=== PATIENT | male | born 2000 | race Caucasian/White ===

== ENCOUNTER 2023-11-23 11:12 | Inpatient (IN) ==
--- NOTE | 2023-11-23 11:41 | Emergency Department Note ---
History of Present Illness General Chief complaint: Illness Stated complaint: SWOLLEN TONSIL, COUGHING, FEVER Time Seen by Provider: 11/23/23 11:23 Source: patient, family (Mother who arrived at the bedside), RN notes reviewed and old records reviewed (11/23/23-Quick care note from today for similar complaints) Mode of arrival: ambulatory Limitations: no limitations History of Present Illness This patient is a 23-year-old male who comes in after having a sore throat for the last 3 days it got worse overnight he feels like his tonsils are swollen bilaterally more so on the left he said today the left side his face hurts in his left neck. He had a fever. No sick contacts no trauma .he is having a difficult time swallowing he says he feels minimally short of breath. No rash. He has used [id number] Tylenol and ibuprofen but no other medications. He is on no NABIL inhibitor's or blood pressure medication. No swelling of the mouth or tongue anteriorly but just the tonsils. No significant cough Home Medications Medication Instructions Recorded Confirmed Type No Known Home Medications 11/23/23 11/23/23 History Allergies Allergy/AdvReac Type Severity Reaction Status Date / Time cat dander Allergy Mild Unverified 11/23/23 10:38 Past Med/Surg History Problem List (Updated 11/23/23 @ 14:50 by Mario Gupta MD) Lab test negative for COVID-19 virus (Acute) Acute dehydration (Acute) Sepsis Acute tonsillitis (Acute) Peritonsillar abscess (Acute) Medical History (Updated 11/23/23 @ 14:50 by Maroi Gupta MD) No pertinent past medical history Surgical History No pertinent past surgical history Social History Smoking Status: Never smoker Preferred Language: Occitan Feels Safe at Home: Yes Immunizations: Past med historydenies significant past medical history. Denies diabetes. Review of Systems A total of 10 systems reviewed and were otherwise negative Physical Exam Vital Signs Vital Signs - 24 hr 11/23/23 11:13 11/23/23 11:21 11/23/23 11:26 Temperature 36.9 C 38.8 C H Temperature Source Temporal Artery Scan Oral Pulse Rate 121 H 102 H Pulse Rate [Apical] 107 H Pulse Rhythm [Apical] Regular Respiratory Rate 20 20 Respiratory Effort / Characteristics Non-Labored Spontaneous Non-Labored Spontaneous Respiratory Depth Normal Normal Respiratory Pattern Regular Blood Pressure 120/78 Blood Pressure [Right Arm] 117/76 Blood Pressure Mean 92 Blood Pressure Mean [Right Arm] 89 Blood Pressure Position [Right Arm] Semi-fowlers Pulse Oximetry 95 96 Oxygen Delivery Method Room Air Room Air Sepsis Recent Fever Within 48 Hours No Sepsis New/Unexplained Change in Mental Status N/A Sepsis Action Taken by Nursing No Action Required 11/23/23 12:36 11/23/23 12:36 11/23/23 14:00 Temperature 38.0 C H Temperature Source Oral Pulse Rate 88 Pulse Rate [Apical] 90 93 H Pulse Rhythm [Apical] Regular Respiratory Rate 16 19 18 Respiratory Effort / Characteristics Non-Labored Spontaneous Non-Labored Spontaneous Respiratory Depth Normal Normal Respiratory Pattern Regular Regular Blood Pressure Blood Pressure [Right Arm] 119/77 112/74 Blood Pressure Mean Blood Pressure Mean [Right Arm] 91 86 Blood Pressure Position [Right Arm] Semi-fowlers Semi-fowlers Pulse Oximetry 98 98 95 Oxygen Delivery Method Room Air Room Air Room Air Sepsis Recent Fever Within 48 Hours Sepsis New/Unexplained Change in Mental Status Sepsis Action Taken by Nursing General: Well developed well nourished young male who has a muffled voice but in no acute distress, breathing comfortably on room air. HEENT: Normal cephalic atraumatic. Pupils are equal round and reactive to light. Extraocular movements are intact. Oropharynx is pink with moist mucous membranes. No swelling of the mouth lips or tongue anteriorly. His tonsils are enlarged bilaterally and kissing in the middle. The left may be more enlarged on the right Neck: Supple with a midline trachea. No meningeal signs or stiffness, no JVD or bruits. No Stridor. He does have some lymphadenopathy in the anterior neck mostly on the left. No fluctuance. Chest: Clear to auscultation bilaterally. No wheezes or rhonchi. No increased work of breathing. Heart: Regular rate and rhythm without murmurs or gallops. Abdomen: Soft nontender, nondistended without rebound guarding or rigidity. Extremities: No cyanosis clubbing or edema. No calf tenderness or assymetry Spine/Back. Non tender to palpation. No CVA tenderness Skin: Good turgor without rashes. Neurologic exam: Cranial nerves two through 12 are intact. Motor and sensation are intact and symmetrical throughout. Course Administered Medications Sodium Chloride (Nss) 1,000 mls @ 999 mls/hr IV .Q1H1M ONE Stop: 11/23/23 14:57 Last Admin: 11/23/23 14:16 Dose: 999 mls/hr Documented By: LEANDER Discontinued Medications Sodium Chloride (Nss) 1,000 mls @ 999 mls/hr IV .Q1H1M ONE Stop: 11/23/23 12:35 Last Infusion: 11/23/23 14:18 Dose: Infused Documented By: Admin: 11/23/23 12:38 Dose: 999 mls/hr Documented By: LEANDER Ceftriaxone Sodium (Rocephin) 2,000 mg in 50 mls @ 100 mls/hr IV NOW STA Stop: 11/23/23 14:21 Last Admin: 11/23/23 14:13 Dose: 100 mls/hr Documented By: LEANDER Ioversol (Optiray 320 100ml) 94 ml IV ONCE ONE Stop: 11/23/23 13:05 Last Admin: 11/23/23 13:05 Dose: 94 ml Documented By: BACILIO Ketorolac Tromethamine (Ketorolac Tromethamine 15 Mg/Ml Vial) 10 mg IV NOW ONE Stop: 11/23/23 11:36 Last Admin: 11/23/23 12:54 Dose: 10 mg Documented By: LEANDER Methylprednisolone (Methylprednisolone 125 Mg/2 Ml Vial) 125 mg IV NOW STA Stop: 11/23/23 11:36 Last Admin: 11/23/23 12:56 Dose: 125 mg Documented By: LEANDER Medical Decision Making Differential Diagnosis Pharyngitis, peritonsillar abscess, infection, airway compromise, epiglottitis, Luís's angina, mono, allergic reaction, dehydration Medical Records Attestation: I reviewed the patient's medical records. Home Medications Current Medication List: was personally reviewed by me Laboratory Data Attestation: I reviewed the patient's lab results. 11/23/23 12:30 11/23/23 12:30 Lab Results 11/23/23 11/23/23 Range/Units 12:30 12:45 WBC 16.83 H (4.8-10.8) K/ul RBC 4.85 (4.70-6.10) M/uL Hgb 14.9 (14.0-18.0) g/dl POC Hgb 14.3 (14.0-18.0) g/dl Hct 42.0 (42.0-52.0) % POC Hct 42 (42-52) % MCV 86.6 (80.0-100.0) fL MCH 30.7 (25.0-34.0) pg MCHC 35.5 (32.0-36.0) g/dL RDW Std Deviation 37.8 (36.4-46.3) fL RDW Coeff of Melba 11.9 (11.5-14.5) % Plt Count 328 (130-400) K/uL MPV 11.0 (9.4-12.4) fL Immature Gran % (Auto) 0.5 % Neut % (Auto) 79.0 % Lymph % (Auto) 8.0 % Pepin % (Auto) 12.2 % Eos % (Auto) 0.1 % Baso % (Auto) 0.2 % Neut # (Auto) 13.30 H (1.40-6.50) K/uL Lymph # (Auto) 1.34 (1.20-3.40) K/uL Pepin # (Auto) 2.05 H (0.11-0.59) K/uL Eos # (Auto) 0.02 (0.00-0.50) K/uL Baso # (Auto) 0.03 (0.00-0.20) K/uL Immature Gran # (Auto) 0.09 (0.01-0.20) K/uL POC Sodium 137 (135-144) mmol/L Sodium 136 (136-145) mmol/L POC Potassium 3.9 (3.3-5.0) mmol/L Potassium 4.0 (3.5-5.1) mmol/L POC Chloride 100 L (101-112) mmol/L Chloride 100 (98-107) mmol/L Carbon Dioxide 27 (21-32) mmol/L POC Total CO2 26 (24-31) mmol/L Anion Gap 9 (3-11) POC Anion Gap 16.0 (16-25) mmol/L POC BUN 9 (7-18) mg/dl BUN 10 (6-23) mg/dl Creatinine 1.08 (0.6-1.4) mg/dl POC Creatinine 1.2 (0.6-1.3) mg/dl Est Cr Clr Drug Dosing 101.2 ml/min Est GFR ( Amer) 110.0 ml/min Est GFR (Non-Af Amer) 94.9 ml/min BUN/Creatinine Ratio 9.3 L (10-20) Glucose 97 (70-99(Fasting)) mg/dl POC Glucose (other) 99 (70-99) mg/dl Calcium 9.8 (8.6-10.3) mg/dl POC Ioniz Calcium [place] 1.16 (1.12-1.32) mmol/l Total Bilirubin 0.6 (0.2-1.0) mg/dl AST 22 (13-39) U/L ALT 23 (7-52) U/L Alkaline Phosphatase 89 (34-104) U/L Total Protein 7.9 (6.0-8.3) gm/dl Albumin 4.3 (3.4-5.0) gm/dl Globulin 3.6 (2.5-4.0) gm/dl Albumin/Globulin Ratio 1.2 (0.9-2) Adenovirus (PCR) Not Detected (NotDetected) B. pertussis DNA (PCR) Not Detected (NotDetected) B.parapertussis DNA PCR Not Detected (NotDetected) C. pneumoniae DNA (PCR) Not Detected (NotDetected) Coronavirus OC43 (PCR) Not Detected (NotDetected) Coronavirus HKU1 (PCR) Not Detected (NotDetected) Coronavirus 229E (PCR) Not Detected (NotDetected) SARS-CoV-2 (PCR) Not Detected (NotDetected) Coronavirus NL63 (PCR) Not Detected (NotDetected) Monoscreen Negative (Negative) Human Metapneumovir PCR Not Detected (NotDetected) Influenza Type A (PCR) Not Detected (NotDetected) Influenza Type B (PCR) Not Detected (NotDetected) M. pneumoniae (PCR) Not Detected (NotDetected) Parainfluenza 1 (PCR) Not Detected (NotDetected) Parainfluenza 2 (PCR) Not Detected (NotDetected) Parainfluenza 3 (PCR) Not Detected (NotDetected) Parainfluenza 4 (PCR) Not Detected (NotDetected) RSV (PCR) Not Detected (NotDetected) Entero/Rhino (PCR) Not Detected (NotDetected) Imaging Data Attestation: I personally reviewed and interpreted this imaging study as follows: My Impression: CT soft tissue of the neckthere is bilateral pharyngitis but no significant airway compromise. Small abscess on the left Radiologist's Impression: Soft Tissue Neck CT 11/23/23 11:35 CT SCAN OF THE NECK WITH IV CONTRAST CLINICAL HISTORY: Sore throat COMPARISON STUDY: No priors. TECHNIQUE: Following the IV administration of at L4 cc of Optiray 320, CT scan of the soft tissues of the neck was performed from the skull base to the upper chest. Images are reviewed in the axial, sagittal, and coronal planes. IV contrast was administered without complication. A dose lowering technique was utilized adhering to the principles of ALARA. FINDINGS: Pharynx: Evaluation of the pharynx is degraded by streak artifact from dental amalgam. There is significant mucosal edema identified within the oropharynx with mucosal thickening and hyperemia. The tonsils are enlarged and edematous, left greater than right. A developing peritonsillar abscess on the left is seen on axial image #124, measuring 1.8 x 1.9 x 1.4 cm. This mildly effaces the left aspect of the airway at this level. No peritonsillar fluid collection is seen on the right. There is no evidence of mass lesion. The vocal cords are symmetric. There is infiltration of the left parapharyngeal fat, with deep soft tissue infiltration seen extending into the left lower neck below the level of the hyoid. The right-sided parapharyngeal fat is maintained. The prevertebral/retropharyngeal soft tissues are within normal limits. The epiglottis is normal. Lymphadenopathy: There are numerous enlarged bilateral cervical chain lymph nodes, left greater than right. A electronics parts sales representative left cervical chain node on image #177 measures 2.1 x 1.6 cm. Thyroid: Normal in size and attenuation. Salivary glands: The parotid and submandibular glands are within normal limits. Brain parenchyma: The visualized brain parenchyma at the skull base is normal in appearance. Vascular structures: The carotid arteries and jugular veins are patent. Skeletal structures: Imaged portions of the calvarium at the skull base are within normal limits. The cervical spine appears intact. Sinuses and mastoids: The visualized paranasal sinuses are clear. The mastoid air cells are well pneumatized. Orbits: Bony orbits are intact. Orbital contents are normal as visualized. Lung apices: Visualized apical lung parenchyma is clear. IMPRESSION: 1. There is evidence of a pharyngitis/tonsillitis as above with a 1.9 cm developing left peritonsillar abscess. 2. This mildly effaces the left aspect of the airway at this level. 3. There is infiltration of the left-sided parapharyngeal fat with inflammatory change involving the deep soft tissues of the left neck as above. 4. Numerous mildly enlarged cervical lymph nodes are likely reactive. 5. Additional findings as above. ACT 112: Negative or not required by law. Electronically signed by: True Berman M.D. 11/23/2023 1:35 PM MDM Narrative This patient comes in as described above. He was seen in room 84. They were concerned about peritonsillar abscess. His strep was negative today. He does have a temperature. IV access was established she was given 1 L IV normal saline bolus she was given Toradol 10 mg IV, Solu-Medrol 125 mg IV. Multiple blood testing was obtained I also ordered a CT of the soft tissue of the neck to evaluate for abscess or other infectious/airway processes. His white count was elevated. Pepin was negative strep was negative earlier today. He has no significant electrolyte or metabolic abnormalities. He is feeling a lot better after IV hydration and the IV medications. He was also given Rocephin 2 g IV. Bio fire was negative for everything including COVID. Do think he needs to be admitted/observed for IV hydration IV antibiotics. I have consulted the on-call ENT, Dr. Hogue, and she agrees. She feels that when he is in the hospital he should have Decadron 10 mg IV every 6 hours as well as IV antibiotics. She tells me that the admitting team can [place] text her and she can see the patient tomorrow after he has had his antibiotics overnight. [facility] and the patient will be admitted for further treatment and evaluation. Continuous cardiac monitoring: Orders placed in EMR for continuous cardiac monitoring: Upon my evaluation patient noted to be normal sinus rhythm rate of 95 Impression & Plan Peritonsillar abscess, Acute tonsillitis, Acute dehydration, Lab test negative for COVID-19 virus Discharge Plan Visit Data Chief Complaint: Illness Stated Complaint: SWOLLEN TONSIL, COUGHING, FEVER ED Provider: Mario Gupta Discharge Problem: Peritonsillar abscess, Acute tonsillitis, Acute dehydration, Lab test negative for COVID-19 virus Forms Stand Alone Forms: My [facility] Prescriptions Prescriptions: No Action No Known Home Medications Referrals Referrals: Clinton Fay MD [Primary Care Provider] - Discharge Problem: Acute tonsillitis Qualifiers: Pharyngitis/tonsillitis etiology: unspecified etiology Qualified Code(s): J 03.90 - Acute tonsillitis, unspecified
[2023-11-23] MEDS: SODIUM CHLORIDE 0.9% 1,000 ML IV ONE ×2 (12:38→14:16)
[2023-11-23] MEDS: KETOROLAC TROMETHAMINE 15 MG/ML VIAL IV ONE (12:54)
[2023-11-23 12:56] LABS: Basophils # (auto) 0.03 K/uL (0.00-0.20); Basophils % (auto) 0.2 %; Eosinophils # (auto) 0.02 K/uL (0.00-0.50); Eosinophils % (auto) 0.1 %; Hemoglobin 14.9 g/dl (14.0-18.0); Immature Granulocytes # (auto) 0.09 K/uL (0.01-0.20); Immature Granulocytes % (auto) 0.5 %; Lymphocytes # (auto) 1.34 K/uL (1.20-3.40); Mean Corpuscular Hemoglobin 30.7 pg (25.0-34.0); Mean Corpuscular Hgb Conc 35.5 g/dL (32.0-36.0); Mean Corpuscular Volume 86.6 fL (80.0-100.0); Monocytes # (auto) 2.05 K/uL (0.11-0.59); Monocytes % (auto) 12.2 %; Platelet Count 328 K/uL (130-400); RDW Coefficient of Variation 11.9 % (11.5-14.5); RDW Standard Deviation 37.8 fL (36.4-46.3); Red Blood Count 4.85 M/uL (4.70-6.10); White Blood Count 16.83 K/ul (4.8-10.8)
[2023-11-23] MEDS: methylPREDNISolone 125 MG/2 ML VIAL IV STA (12:56)
[2023-11-23 13:01] LABS: iSTAT Creatinine 1.2 mg/dl (0.6-1.3); iSTAT Hemoglobin 14.3 g/dl (14.0-18.0); iSTAT Ionized Calcium 1.16 mmol/l (1.12-1.32); iSTAT Potassium 3.9 mmol/L (3.3-5.0)
[2023-11-23] MEDS: OPTIRAY 320 100ml IV ONE (13:05)
[2023-11-23 13:20] LABS: Albumin Globulin Ratio 1.2 (0.9-2); Albumin Level 4.3 gm/dl (3.4-5.0); BUN Creatinine Ratio 9.3 (10-20); Bilirubin,Total 0.6 mg/dl (0.2-1.0); Calcium 9.8 mg/dl (8.6-10.3); Creatinine Clr Calc Pharmacy 101.2 ml/min; Est GFR (Non-African American) 94.9 ml/min; Globulin 3.6 gm/dl (2.5-4.0); Total Protein 7.9 gm/dl (6.0-8.3)
--- NOTE | 2023-11-23 13:37 | CT Scan Report ---
CT SCAN OF THE NECK WITH IV CONTRAST CLINICAL HISTORY: Sore throat COMPARISON STUDY: No priors. TECHNIQUE: Following the IV administration of at L4 cc of Optiray 320, CT scan of the soft tissues of the neck was performed from the skull base to the upper chest. Images are reviewed in the axial, sag ittal, and coronal planes. IV contrast was administered without complication. A dose lowering techn ique was utilized adhering to the principles of ALARA. FINDINGS: Pharynx: Evaluation of the pharynx is degraded by streak artifact from dental amalgam. There is signi ficant mucosal edema identified within the oropharynx with mucosal thickening and hyperemia. The tons ils are enlarged and edematous, left greater than right. A developing peritonsillar abscess on the le ft is seen on axial image #124, measuring 1.8 x 1.9 x 1.4 cm. This mildly effaces the left aspect of the airway at this level. No peritonsillar fluid collection is seen on the right. There is no eviden ce of mass lesion. The vocal cords are symmetric. There is infiltration of the left parapharyngeal fa t, with deep soft tissue infiltration seen extending into the left lower neck below the level of the hyoid. The right-sided parapharyngeal fat is maintained. The prevertebral/retropharyngeal soft tissue s are within normal limits. The epiglottis is normal. Lymphadenopathy: There are numerous enlarged bilateral cervical chain lymph nodes, left greater than right. A wholesale representative left cervical chain node on image #177 measures 2.1 x 1.6 cm. Thyroid: Normal in size and attenuation. Salivary glands: The parotid and submandibular glands are within normal limits. Brain parenchyma: The visualized brain parenchyma at the skull base is normal in appearance. Vascular structures: The carotid arteries and jugular veins are patent. Skeletal structures: Imaged portions of the calvarium at the skull base are within normal limits. The cervical spine appears intact. Sinuses and mastoids: The visualized paranasal sinuses are clear. The mastoid air cells are well pneu matized. Orbits: Bony orbits are intact. Orbital contents are normal as visualized. Lung apices: Visualized apical lung parenchyma is clear. IMPRESSION: 1. There is evidence of a pharyngitis/tonsillitis as above with a 1.9 cm developing left peritonsilla r abscess. 2. This mildly effaces the left aspect of the airway at this level. 3. There is infiltration of the left-sided parapharyngeal fat with inflammatory change involving the deep soft tissues of the left neck as above. 4. Numerous mildly enlarged cervical lymph nodes are likely reactive. 5. Additional findings as above. ACT 112: Negative or not required by law. Electronically signed by: True Berman M.D. 11/23/2023 1:35 PM
[2023-11-23 13:53] LABS: Adenovirus PCR Not Detected (NotDetected); Bordetella parapertussis PCR Not Detected (NotDetected); Bordetella pertussis PCR Not Detected (NotDetected); Chlamydia pneumoniae PCR Not Detected (NotDetected); Coronavirus 229E PCR Not Detected (NotDetected); Coronavirus CoV-2 (COVID19)PCR Not Detected (NotDetected); Coronavirus HKU1 PCR Not Detected (NotDetected); Coronavirus NL63 PCR Not Detected (NotDetected); Coronavirus OC43PCR Not Detected (NotDetected); Human Metapneumovirus PCR Not Detected (NotDetected); Influenza A PCR Not Detected (NotDetected); Influenza B PCR Not Detected (NotDetected); Mycoplasma pneumoniae PCR Not Detected (NotDetected); Parainfluenza Virus 1 PCR Not Detected (NotDetected); Parainfluenza Virus 2 PCR Not Detected (NotDetected); Parainfluenza Virus 3 PCR Not Detected (NotDetected); Parainfluenza Virus 4 PCR Not Detected (NotDetected); Respiratory Syncytial VirusPCR Not Detected (NotDetected); Rhinovirus/Enterovirus PCR Not Detected (NotDetected)
--- NOTE | 2023-11-23 14:06 | History & Physical Report ---
Date of Service November 23, 2023 Assessment & Plan (1) Acute tonsillitis: (2) Peritonsillar abscess: (3) Sepsis: Plan Moe Perkins is a 23y/o M with no significant PMHx who presented to the ED for evaluation of a worsening sore throat and was found to have a 1.9cm left perit onsillar abscess with associated tonsillitis on soft tissue neck CT. Acute Tonsillitis Left Peritonsillar Abscess & Sepsis - Meets sepsis criteria on presentation 2/2 tachycardia, fever, WBC>12K and present source of infection. Temp 38.0oC, WBC 16.8K on admission. RVP & monoscreen both negative. No acute electrolyte abnormalities. Soft tissue neck CT showed evidence of a pharyngitis/tonsillitis with a 1.9 cm developing left peritonsillar abscess. Neck CT also revealed infiltration of the left-sided parapharyngeal fat with inflammatory change involving the deep soft tissues of the left neck & numerous mildly enlarged cervical lymph nodes (likely reactive). Dr. Gupta spoke with ENT surgeon on-call, Dr. Fiorella Hogue, who recommends the following: IV Decadron 10mg Q6H, broad-spectrum ABX coverage and to continue IVF. Dr. Hogue will likely see patient tomorrow [routine consult placed]. Soft + easy to chew diet for now, can advance ANGELES. Will keep him NPO at midnight pending ENT evaluation for possible I&D. Administered 2L NSS in ED, will continue IVF 2/2 presenting sepsis. Was started on IV Rocephin in ED, will transition to IV Zosyn for now. Blood culture pending - follow. Pain control regimen in place. Ordered a dose of PO Tylenol to be given in ED 2/2 fever, will continue w/ scheduled IV Tylenol. Patient received 125mg IV Solu-Medrol in ED, will continue w/ IV Decadron 10mg Q6H for now per ENT surgery's recommendation. DVT Prophylaxis: SCDs for now pending potential surgical intervention tomorrow. Code Status: FULL CODE PCP: Mario Fay MD Disposition: Observation in Med/Surg + Telemetry Patient seen in collaboration with Dr. Russell. Please see addendum. I spent a total of 55 minutes coordinating, documenting, and providing care for this patient excluding time spent in the performance of separately billed services. This included personally reviewing all current laboratories and imaging studies, medical reconciliation, outpatient chart review and discussion with specialists. This chart was completed in part utilizing Speech Voice Recognition Software. Grammatical errors, random word insertions, pronoun errors, and incomplete sentences are an occasional consequence of this system due to software limitations, ambient noise, and hardware issues. Any formal questions or concerns about the content, text, or information contained within the body of this dictation should be directly addressed to the provider for clarification. History of Present Illness Chief Complaint: Sore Throat Primary Care Provider: Mario Fay MD Moe Perkins is a 23y/o M with no significant PMHx who presented to the ED for evaluation of a worsening sore throat. History obtained from patient, family at bedside and associated chart review. Patient reports an ongoing sore throat and intermittent fevers since last Thursday. His girlfriend mentions that his highest recorded fever at home was 102oF. He does report a mild cough and minimal sinus congestion. He endorses body aches and chills as well. He also mentions that his tonsils have felt swollen and sore since Thursday. He reports that the left side of his face and neck have been hurting. He has been taking Tylenol and Motrin at home without much relief of his pain. He is having some difficulty swallowing, but denies any shortness of breath or chest pain. No known sick contacts or trauma. Allergies Allergy/AdvReac Type Severity Reaction Status Date / Time cat dander Allergy Mild Unverified 11/23/23 10:38 Home Medications Medication Instructions Recorded Confirmed Type No Known Home Medications 11/23/23 11/23/23 History Past Med/Surg History Problem List Lab test negative for COVID-19 virus (Acute) Acute dehydration (Acute) Sepsis Acute tonsillitis (Acute) Peritonsillar abscess (Acute) Medical History No pertinent past medical history Surgical History No pertinent past surgical history Social History Smoking Status: Never smoker Second Hand Exposure: No; Do You Dip or Chew Tobacco: No; Hx Alcohol Use: No Hx Substance Use: No Preferred Language: [place]orese Communication Ability: Effective 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 Physical Exam Physical Exam: General: WD/WN, vitals as above, NAD, sitting up in bed, somewhat muffled voice. A+Ox3, ill-appearing but very pleasant. HEENT: Normocephalic, atraumatic. PERRL, conjunctivae normal, oropharynx moist, tonsils enlarged bilaterally, no drooling or lip swelling. Neck: Normal visual inspection, trachea midline, no thyromegaly, bilateral cervical lymphadenopathy (L>R). Respiratory: Normal respiratory effort, lungs clear to auscultation, no wheeze, rales, rhonchi. No accessory muscle use. Cardiovascular: Regular rate, rhythm, no murmur, normal peripheral pulses, no BLE edema. Vessels: No JVD. Abdomen/GI: Normal bowel sounds, soft, nontender, no hepatosplenomegaly. Extremities/Musculoskeletal: No cyanosis or clubbing, extremities motor strength intact, moves all extremities. Neurologic: EOMI, accommodation nl, no face palsy, no dysarthria, CN's II-XI not formally tested but appear grossly intact bilaterally. Skin: No rashes, normal color, mildly diaphoretic, somewhat clammy to touch, normal turgor. Results & Data Results & Data Vital Signs (Past 12 Hours) Vital Signs Temp Pulse Pulse Resp BP BP Pulse Ox 11/23/23 12:36 90 19 119/77 98 11/23/23 12:36 88 16 98 11/23/23 11:26 38.8 C H 107 H 20 117/76 96 11/23/23 11:21 102 H 11/23/23 11:13 36.9 C 121 H 20 120/78 95 O2 Del Method 11/23/23 12:36 Room Air 11/23/23 12:36 Room Air 11/23/23 11:26 Room Air 11/23/23 11:21 11/23/23 11:13 Room Air Laboratory Results Short CBC 11/23/23 Range/Units 12:30 WBC 16.83 H (4.8-10.8) K/ul Hgb 14.9 (14.0-18.0) g/dl Hct 42.0 (42.0-52.0) % Plt Count 328 (130-400) K/uL BMP 11/23/23 12:30 Sodium 136 Potassium 4.0 Chloride 100 Carbon Dioxide 27 BUN 10 Creatinine 1.08 Glucose 97 Calcium 9.8 Liver Function 11/23/23 Range/Units 12:30 Total Bilirubin 0.6 (0.2-1.0) mg/dl AST 22 (13-39) U/L ALT 23 (7-52) U/L Alkaline Phosphatase 89 (34-104) U/L Albumin 4.3 (3.4-5.0) gm/dl Diagnostic Findings Soft Tissue Neck CT 11/23/23 11:35 CT SCAN OF THE NECK WITH IV CONTRAST CLINICAL HISTORY: Sore throat COMPARISON STUDY: No priors. TECHNIQUE: Following the IV administration of at L4 cc of Optiray 320, CT scan of the soft tissues of the neck was performed from the skull base to the upper chest. Images are reviewed in the axial, sagittal, and coronal planes. IV contrast was administered without complication. A dose lowering technique was utilized adhering to the principles of ALARA. FINDINGS: Pharynx: Evaluation of the pharynx is degraded by streak artifact from dental amalgam. There is significant mucosal edema identified within the oropharynx with mucosal thickening and hyperemia. The tonsils are enlarged and edematous, left greater than right. A developing peritonsillar abscess on the left is seen on axial image #124, measuring 1.8 x 1.9 x 1.4 cm. This mildly effaces the left aspect of the airway at this level. No peritonsillar fluid collection is seen on the right. There is no evidence of mass lesion. The vocal cords are symmetric. There is infiltration of the left parapharyngeal fat, with deep soft tissue infiltration seen extending into the left lower neck below the level of the hyoid. The right-sided parapharyngeal fat is maintained. The prevertebral/retropharyngeal soft tissues are within normal limits. The epiglottis is normal. Lymphadenopathy: There are numerous enlarged bilateral cervical chain lymph nodes, left greater than right. A public relations representative left cervical chain node on image #177 measures 2.1 x 1.6 cm. Thyroid: Normal in size and attenuation. Salivary glands: The parotid and submandibular glands are within normal limits. Brain parenchyma: The visualized brain parenchyma at the skull base is normal in appearance. Vascular structures: The carotid arteries and jugular veins are patent. Skeletal structures: Imaged portions of the calvarium at the skull base are within normal limits. The cervical spine appears intact. Sinuses and mastoids: The visualized paranasal sinuses are clear. The mastoid air cells are well pneumatized. Orbits: Bony orbits are intact. Orbital contents are normal as visualized. Lung apices: Visualized apical lung parenchyma is clear. IMPRESSION: 1. There is evidence of a pharyngitis/tonsillitis as above with a 1.9 cm developing left peritonsillar abscess. 2. This mildly effaces the left aspect of the airway at this level. 3. There is infiltration of the left-sided parapharyngeal fat with inflammatory change involving the deep soft tissues of the left neck as above. 4. Numerous mildly enlarged cervical lymph nodes are likely reactive. 5. Additional findings as above. ACT 112: Negative or not required by law. Electronically signed by: True Berman M.D. 11/23/2023 1:35 PM Medications Administered Discontinued Medications Sodium Chloride (Nss) 1,000 mls @ 999 mls/hr IV .Q1H1M ONE Stop: 11/23/23 12:35 Last Admin: 11/23/23 12:38 Dose: 999 mls/hr Documented By: LEANDER Ioversol (Optiray 320 100ml) 94 ml IV ONCE ONE Stop: 11/23/23 13:05 Last Admin: 11/23/23 13:05 Dose: 94 ml Documented By: BACILIO Ketorolac Tromethamine (Ketorolac Tromethamine 15 Mg/Ml Vial) 10 mg IV NOW ONE Stop: 11/23/23 11:36 Last Admin: 11/23/23 12:54 Dose: 10 mg Documented By: LEANDER Methylprednisolone (Methylprednisolone 125 Mg/2 Ml Vial) 125 mg IV NOW STA Stop: 11/23/23 11:36 Last Admin: 11/23/23 12:56 Dose: 125 mg Documented By: LEANDER Code Status & VTE Plan Code Status FULL CODE Supervising Physician Co-Signing Physician Notes Pt was seen and examined by myself, Leonor Russell MD on the day of service. Care was coordinated with Brissa Cook PA-C. 23yoM septic with peritonsillar abscess. On exam, appears toxic, denies SOB or trouble breathing. No visible drooling, voice with reported improvement. IV zosyn + empiric Linezolid given sepsis and toxic appearance on exam, MRSA nares pending. IV fluids, steroids. ENT consult, NPO after midnight. Otherwise as above. I spent a total [id number] coordinating, documenting, and providing care for this patient excluding time spent in the performance of separately billed services (1) Acute tonsillitis Pharyngitis/tonsillitis etiology: unspecified etiology Qualified Code(s): J03.90 - Acute tonsillitis, unspecified (3) Sepsis Sepsis acute organ dysfunction status: without acute organ dysfunction Sepsis type: sepsis due to unspecified organism Qualified Code(s): A41.9 - Sepsis, unspecified organism
[2023-11-23] MEDS: cefTRIAXone SODIUM 2,000 MG/50 ML BAG IV STA (14:13)
[2023-11-23] MEDS: ACETAMINOPHEN 325 MG TAB PO STA (16:12)
[2023-11-23] MEDS ORDERED: ONDANSETRON INJ 2 MG/ML 2 ML VIAL IV PRN (16:53)
[2023-11-23] MEDS ORDERED: KETOROLAC TROMETHAMINE 15 MG/ML VIAL IV PRN (16:53)
[2023-11-23] MEDS ORDERED: POLYETHYLENE (MIRALAX) 17 GM PACK PO PRN (16:53)
[2023-11-23] MEDS: SODIUM CHLORIDE 0.9% 1,000 ML IV SCH (17:15)
[2023-11-23] MEDS: ACETAMINOPHEN 1,000 MG/100 ML VIAL IV SCH (17:15)
[2023-11-23] MEDS: PIPERACILLIN/TAZOBACTAM 4.5 GM/100 ML BAG IV STA (17:34)
[2023-11-23] MEDS: dexAMETHasone 10 MG in SYRINGE 0 ML IV SCH (18:56)
[2023-11-23] MEDS: PIPERACILLIN/TAZOBACTAM 4.5 GM/100 ML BAG IV SCH (22:00)
[2023-11-23] MEDS ORDERED: HYDROmorphone INJ 0.5 MG/0.5 ML SYR IV PRN (22:48)
[2023-11-23] MEDS: LINEZOLID 600 MG/300 ML BAG IV SCH (23:52)
[2023-11-24 08:28] LABS: Hematocrit (blood only) 40.5 % (42.0-52.0); Hemoglobin 13.9 g/dl (14.0-18.0); Mean Corpuscular Hemoglobin 30.3 pg (25.0-34.0); Mean Corpuscular Hgb Conc 34.3 g/dL (32.0-36.0); Mean Corpuscular Volume 88.4 fL (80.0-100.0); Mean Platelet Volume 10.9 fL (9.4-12.4); Platelet Count 328 K/uL (130-400); RDW Coefficient of Variation 12.1 % (11.5-14.5); Red Blood Count 4.58 M/uL (4.70-6.10); White Blood Count 21.34 K/ul (4.8-10.8)
[2023-11-24 08:36] LABS: BUN Creatinine Ratio 12.2 (10-20); Calcium 8.7 mg/dl (8.6-10.3); Creatinine Clr Calc Pharmacy 121.4 ml/min; Est GFR (African American) 137.1 ml/min; Est GFR (Non-African American) 118.3 ml/min; Magnesium 2.1 mg/dl (1.7-2.4); Phosphorus 3.1 mg/dl (2.5-4.9); Potassium 3.7 mmol/L (3.5-5.1)
[2023-11-24 08:59] LABS: Basophils # (auto) 0.05 K/uL (0.00-0.20); Basophils % (auto) 0.2 %; Eosinophils # (auto) 0.01 K/uL (0.00-0.50); Immature Granulocytes # (auto) 0.11 K/uL (0.01-0.20); Immature Granulocytes % (auto) 0.5 %; Lymphocytes # (auto) 1.15 K/uL (1.20-3.40); Lymphocytes % (auto) 5.4 %; Monocytes % (auto) 3.3 %; Neutrophils # (auto) 19.32 K/uL (1.40-6.50); Neutrophils % (auto) 90.6 %
--- NOTE | 2023-11-24 12:11 | Hospitalist Progress Note ---
Date of Service November 24, 2023 Assessment & Plan (1) Acute tonsillitis: (2) Peritonsillar abscess: (3) Sepsis: Plan Moe Perkins is a 23y/o M with no significant PMHx who presented to the ED for evaluation of a worsening sore throat and was found to have a 1.9cm left perit onsillar abscess with associated tonsillitis on soft tissue neck CT. Acute Tonsillitis Left Peritonsillar Abscess Sepsis - resolved Met sepsis criteria on presentation 2/2 tachycardia, fever, WBC 16K. BP stable. RVP & monoscreen both negative. Soft tissue neck CT showed evidence of a pharyngitis/tonsillitis with a 1.9 cm developing left peritonsillar abscess. Neck CT also revealed infiltration of the left-sided parapharyngeal fat with inflammatory change involving the deep soft tissues of the left neck & numerous mildly enlarged cervical lymph nodes (likely reactive). Per ENT, Patient was started on IV Decadron 10 mg q6h and broad-spectrum antibiotics (received IV Rocephin in the ED, was transition to IV Zosyn and IV linezolid) Patient improved today, case discussed with Dr. Hogue via [employer] - start clears, may advance as tolerated to soft diet. Plan to keep one more day on IV steroids and antibx. MRSA swab negative, will DC linezolid. Continue IV Zosyn (day 2). DVT PROPHYLAXIS SCDs, ambulation encouraged Admission and Anticipated Discharge Date Admission Date: November 23, 2023 Supervising Physician Co-Signing Physician Notes Patient seen and examined independently. Discussed with above provider. Patient reports significant improvement in pain and discomfort. Linezolid discontinued as MRSA nares were negative ENT to evaluate the patient later today Patient will need at least 14 days of antibiotic with Augmentin at discharge. I have reviewed the advanced practitioner's documentation, and I agree with, and take responsibility for the plan of care I spent a total of 20 minutes coordinating, documenting, and providing care for this patient excluding time spent in the performance of separately billed services. All of the aforementioned completed while collaborating with the assigned advanced practitioner for a full treatment plan Subjective Follow-up for left peritonsillar abscess. Patient seen and examined. Reports feeling improved. Asking for something to eat. Left sided neck swelling improving, still has some mild pain with swallowing but improved. Denies shortness of breath or difficulty swallowing. Physical Exam Constitutional: WD/WN, vitals as above no acute distress ENMT: mild trismus Neck: mild left sided neck swelling Respiratory: normal respiratory effort, lungs clear to auscultation Cardiovascular: Rate/Rhythm: regular rate and regular rhythm Skin: no rashes, warm and dry Neurologic: no focal motor deficits Psychiatric: A+Ox3, euthymic affect Results & Data Results & Data Vital Signs (Past 12 Hours) Vital Signs Temp Pulse Pulse Resp BP Pulse Ox O2 Del Method 11/24/23 11:12 36.7 C 99 H 18 112/73 95 Room Air 11/24/23 07:48 36.7 C 88 16 118/79 97 Room Air 11/24/23 07:16 67 11/24/23 05:00 36.4 C L 85 20 119/74 99 Room Air 11/24/23 00:05 36.6 C 75 20 96/59 L 96 Room Air Laboratory Results Short CBC 11/23/23 11/24/23 Range/Units 12:30 07:32 WBC 16.83 H 21.34 H (4.8-10.8) K/ul Hgb 14.9 13.9 L (14.0-18.0) g/dl Hct 42.0 40.5 L (42.0-52.0) % Plt Count 328 328 (130-400) K/uL [facility] 11/23/23 11/24/23 12:30 07:32 Sodium 136 138 Potassium 4.0 3.7 Chloride 100 106 Carbon Dioxide 27 24 BUN 10 11 Creatinine 1.08 0.90 Glucose 97 151 H Calcium 9.8 8.7 Liver Function 11/23/23 Range/Units 12:30 Total Bilirubin 0.6 (0.2-1.0) mg/dl AST 22 (13-39) U/L ALT 23 (7-52) U/L Alkaline Phosphatase 89 (34-104) U/L Albumin 4.3 (3.4-5.0) gm/dl (1) Acute tonsillitis Pharyngitis/tonsillitis etiology: unspecified etiology Qualified Code(s): J03.90 - Acute tonsillitis, unspecified (3) Sepsis Sepsis acute organ dysfunction status: without acute organ dysfunction Sepsis type: sepsis due to unspecified organism Qualified Code(s): A41.9 - Sepsis, unspecified organism
--- NOTE | 2023-11-24 14:48 | ENT Consultation ---
Date of Consultation November 24, 2023 Assessment & Plan (1) Peritonsillar abscess: Should complete at least full 48 hours of IV abx and steroids. Discharge on clinda x 14 days with medrol dose pack. 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 Attending Physician: Brad Keith MD History of Present Illness See ED note Allergies Allergy/AdvReac Type Severity Reaction Status Date / Time cat dander Allergy Mild Unverified 11/23/23 10:38 Home Medications Medication Instructions Recorded Confirmed Type No Known Home Medications 11/23/23 11/23/23 History Patient History Medical History No pertinent past medical history Surgical History No pertinent past surgical history Social History Smoking Status: Never smoker Second Hand Exposure: No; Do You Dip or Chew Tobacco: No; Hx Alcohol Use: No Hx Substance Use: No Preferred Language: Bhutanese Communication Ability: Effective Manufacturer Required: No Beliefs That Will Affect Care: None Current Living Situation: Significant Other Other Information That Helps Us Care for You: No Feels Safe at Home: No Is there a partner from a previous relationship who is making you feel unsafe now?: No Any Concerns about Your Family Situation: No Would You Like to Speak to Someone About Your Situation: No Safety Concerns: Feels Safe At This Time Assistive Devices: None Review of Systems Review of Systems: negative except per HPI Physical Exam Physical Exam: aaox3 NAD ENMT: Trismus per report has improved, appears to have full mouth opening with minimal discomfort. Tonsils are enlarged an erythematous but no deviation of the uvula. Neck is soft Results & Data Vital Signs (Past 12 Hours) Vital Signs Temp Pulse Pulse Resp BP Pulse Ox O2 Del Method 11/24/23 11:12 36.7 C 99 H 18 112/73 95 Room Air 11/24/23 07:48 36.7 C 88 16 118/79 97 Room Air 11/24/23 07:16 67 11/24/23 05:00 36.4 C L 85 20 119/74 99 Room Air
[2023-11-25] MEDS: guaiFENesin SUGAR FREE 200 MG/10 ML UDC PO PRN (00:28)
[2023-11-25 06:36] LABS: Hematocrit (blood only) 39.8 % (42.0-52.0); Hemoglobin 13.7 g/dl (14.0-18.0); Mean Corpuscular Hemoglobin 30.6 pg (25.0-34.0); Mean Corpuscular Hgb Conc 34.4 g/dL (32.0-36.0); Mean Platelet Volume 10.9 fL (9.4-12.4); Platelet Count 377 K/uL (130-400); RDW Coefficient of Variation 12.2 % (11.5-14.5); RDW Standard Deviation 40.2 fL (36.4-46.3); Red Blood Count 4.47 M/uL (4.70-6.10); White Blood Count 24.18 K/ul (4.8-10.8)
[2023-11-25 06:57] LABS: Calcium 8.9 mg/dl (8.6-10.3); Potassium 3.8 mmol/L (3.5-5.1)
[2023-11-25 07:03] LABS: BUN Creatinine Ratio 12.1 (10-20); Creatinine Clr Calc Pharmacy 120.1 ml/min; Est GFR (African American) 135.3 ml/min; Est GFR (Non-African American) 116.7 ml/min
[2023-11-25 08:33] VITALS: RESP 18; TEMP 98.1
[2023-11-25] MEDS: methylPREDNISolone 4 MG TAB PO SCH (12:20)
[2023-11-25 12:32] VITALS: BP 106/67; PULSE 88; O2SAT 95
--- NOTE | 2023-11-25 12:50 | Discharge Summary ---
Date of Service November 25, 2023 Admission HPI Per Admitting Provider Moe Perkins is a 23y/o M with no significant PMHx who presented to the ED for evaluation of a worsening sore throat. History obtained from patient, family at bedside and associated chart review. Patient reports an ongoing sore throat and intermittent fevers since last Thursday. His girlfriend mentions that his highest recorded fever at home was 102oF. He does report a mild cough and min imal sinus congestion. He endorses body aches and chills as well. He also mentions that his tonsils have felt swollen and sore since Thursday. He reports that the left side of his face and neck have been hurting. He has been taking Tylenol and Motrin at home without much relief of his pain. He is having some difficulty swallowing, but denies any shortness of breath or chest pain. No known sick contacts or trauma. Admission Exam Per Admitting Provider General: WD/WN, vitals as above, NAD, sitting up in bed, somewhat muffled voice. A+Ox3, ill-appearing but very pleasant. HEENT: Normocephalic, atraumatic. PERRL, conjunctivae normal, oropharynx moist, tonsils enlarged bilaterally, no drooling or lip swelling. Neck: Normal visual inspection, trachea midline, no thyromegaly, bilateral cervical lymphadenopathy (L>R). Respiratory: Normal respiratory effort, lungs clear to auscultation, no wheeze, rales, rhonchi. No accessory muscle use. Cardiovascular: Regular rate, rhythm, no murmur, normal peripheral pulses, no BLE edema. Vessels: No JVD. Abdomen/GI: Normal bowel sounds, soft, nontender, no hepatosplenomegaly. Extremities/Musculoskeletal: No cyanosis or clubbing, extremities motor strength intact, moves all extremities. Neurologic: EOMI, accommodation nl, no face palsy, no dysarthria, CN's II-XI not formally tested but appear grossly intact bilaterally. Skin: No rashes, normal color, mildly diaphoretic, somewhat clammy to touch, normal turgor. Principal Diagnosis Left peritonsillar abscess Discharge Exam Constitutional WD/WN, vitals as above no acute distress ENMT Mouth: no trismus Throat: + tonsil abnormality (left tonsil enlarged with some exudate noted) Respiratory normal respiratory effort, lungs clear to auscultation Cardiovascular Rate/Rhythm: regular rate and regular rhythm Skin no rashes, warm and dry Neurologic no focal motor deficits Psychiatric A+Ox3, euthymic affect Discharge Data Allergies Allergy/AdvReac Type Severity Reaction Status Date / Time cat dander Allergy Mild Unverified 11/23/23 10:38 Consultations 11/23/23 14:24 Consult Otolaryngology (Head and Neck) Routine Ordered Studies Laboratory Results WBC 24.18 K/ul (4.8-10.8) H 11/25/23 05:54 RBC 4.47 M/uL (4.70-6.10) L 11/25/23 05:54 Hgb 13.7 g/dl (14.0-18.0) L 11/25/23 05:54 POC Hgb 14.3 g/dl (14.0-18.0) 11/23/23 12:45 Hct 39.8 % (42.0-52.0) L 11/25/23 05:54 POC Hct 42 % (42-52) 11/23/23 12:45 MCV 89.0 fL (80.0-100.0) 11/25/23 05:54 MCH 30.6 pg (25.0-34.0) 11/25/23 05:54 MCHC 34.4 g/dL (32.0-36.0) 11/25/23 05:54 RDW Std Deviation 40.2 fL (36.4-46.3) 11/25/23 05:54 RDW Coeff of Melba 12.2 % (11.5-14.5) 11/25/23 05:54 Plt Count 377 K/uL (130-400) 11/25/23 05:54 MPV 10.9 fL (9.4-12.4) 11/25/23 05:54 Immature Gran % (Auto) 0.5 % 11/24/23 07:32 Neut % (Auto) 90.6 % 11/24/23 07:32 Lymph % (Auto) 5.4 % 11/24/23 07:32 [place] % (Auto) 3.3 % 11/24/23 07:32 Eos % (Auto) 0.0 % 11/24/23 07:32 Baso % (Auto) 0.2 % 11/24/23 07:32 Neut # (Auto) 19.32 K/uL (1.40-6.50) H 11/24/23 07:32 Lymph # (Auto) 1.15 K/uL (1.20-3.40) L 11/24/23 07:32 [place] # (Auto) 0.70 K/uL (0.11-0.59) H 11/24/23 07:32 Eos # (Auto) 0.01 K/uL (0.00-0.50) 11/24/23 07:32 Baso # (Auto) 0.05 K/uL (0.00-0.20) 11/24/23 07:32 Immature Gran # (Auto) 0.11 K/uL (0.01-0.20) 11/24/23 07:32 POC Sodium 137 mmol/L (135-144) 11/23/23 12:45 Sodium 139 mmol/L (136-145) 11/25/23 05:54 POC Potassium 3.9 mmol/L (3.3-5.0) 11/23/23 12:45 Potassium 3.8 mmol/L (3.5-5.1) 11/25/23 05:54 POC Chloride 100 mmol/L (101-112) L 11/23/23 12:45 Chloride 105 mmol/L (98-107) 11/25/23 05:54 Carbon Dioxide 29 mmol/L (21-32) 11/25/23 05:54 POC Total CO2 26 mmol/L (24-31) 11/23/23 12:45 Anion Gap 5 (3-11) 11/25/23 05:54 POC Anion Gap 16.0 mmol/L (16-25) 11/23/23 12:45 POC BUN 9 mg/dl (7-18) 11/23/23 12:45 BUN 11 mg/dl (6-23) 11/25/23 05:54 Creatinine 0.91 mg/dl (0.6-1.4) 11/25/23 05:54 POC Creatinine 1.2 mg/dl (0.6-1.3) 11/23/23 12:45 Est Cr Clr Drug Dosing 120.1 ml/min 11/25/23 05:54 Est GFR ( Amer) 135.3 ml/min 11/25/23 05:54 Est GFR (Non-Af Amer) 116.7 ml/min 11/25/23 05:54 BUN/Creatinine Ratio 12.1 (10-20) 11/25/23 05:54 Glucose 200 mg/dl (70-99(Fasting)) H 11/25/23 05:54 POC Glucose (other) 99 mg/dl (70-99) 11/23/23 12:45 Calcium 8.9 mg/dl (8.6-10.3) 11/25/23 05:54 POC Ioniz Calcium [place] 1.16 mmol/l (1.12-1.32) 11/23/23 12:45 Phosphorus 3.1 mg/dl (2.5-4.9) 11/24/23 07:32 Magnesium 2.1 mg/dl (1.7-2.4) 11/24/23 07:32 Total Bilirubin 0.6 mg/dl (0.2-1.0) 11/23/23 12:30 AST 22 U/L (13-39) 11/23/23 12:30 ALT 23 U/L (7-52) 11/23/23 12:30 Alkaline Phosphatase 89 U/L (34-104) 11/23/23 12:30 Total Protein 7.9 gm/dl (6.0-8.3) 11/23/23 12:30 Albumin 4.3 gm/dl (3.4-5.0) 11/23/23 12:30 Globulin 3.6 gm/dl (2.5-4.0) 11/23/23 12:30 Albumin/Globulin Ratio 1.2 (0.9-2) 11/23/23 12:30 Nasal Screen MRSA (PCR) Negative (Negative) 11/23/23 23:24 Adenovirus (PCR) Not Detected (NotDetected) 11/23/23 12:30 B. pertussis DNA (PCR) Not Detected (NotDetected) 11/23/23 12:30 B.parapertussis DNA PCR Not Detected (NotDetected) 11/23/23 12:30 C. pneumoniae DNA (PCR) Not Detected (NotDetected) 11/23/23 12:30 Coronavirus OC43 (PCR) Not Detected (NotDetected) 11/23/23 12:30 Coronavirus HKU1 (PCR) Not Detected (NotDetected) 11/23/23 12:30 Coronavirus 229E (PCR) Not Detected (NotDetected) 11/23/23 12:30 SARS-CoV-2 (PCR) Not Detected (NotDetected) 11/23/23 12:30 Coronavirus NL63 (PCR) Not Detected (NotDetected) 11/23/23 12:30 Monoscreen Negative (Negative) 11/23/23 12:30 Human Metapneumovir PCR Not Detected (NotDetected) 11/23/23 12:30 Influenza Type A (PCR) Not Detected (NotDetected) 11/23/23 12:30 Influenza Type B (PCR) Not Detected (NotDetected) 11/23/23 12:30 M. pneumoniae (PCR) Not Detected (NotDetected) 11/23/23 12:30 Parainfluenza 1 (PCR) Not Detected (NotDetected) 11/23/23 12:30 Parainfluenza 2 (PCR) Not Detected (NotDetected) 11/23/23 12:30 Parainfluenza 3 (PCR) Not Detected (NotDetected) 11/23/23 12:30 Parainfluenza 4 (PCR) Not Detected (NotDetected) 11/23/23 12:30 RSV (PCR) Not Detected (NotDetected) 11/23/23 12:30 Entero/Rhino (PCR) Not Detected (NotDetected) 11/23/23 12:30 Impressions Soft Tissue Neck CT 11/23/23 11:35 CT SCAN OF THE NECK WITH IV CONTRAST CLINICAL HISTORY: Sore throat COMPARISON STUDY: No priors. TECHNIQUE: Following the IV administration of at L4 cc of Optiray 320, CT scan of the soft tissues of the neck was performed from the skull base to the upper chest. Images are reviewed in the axial, sagittal, and coronal planes. IV contrast was administered without complication. A dose lowering technique was utilized adhering to the principles of ALARA. FINDINGS: Pharynx: Evaluation of the pharynx is degraded by streak artifact from dental amalgam. There is significant mucosal edema identified within the oropharynx with mucosal thickening and hyperemia. The tonsils are enlarged and edematous, left greater than right. A developing peritonsillar abscess on the left is seen on axial image #124, measuring 1.8 x 1.9 x 1.4 cm. This mildly effaces the left aspect of the airway at this level. No peritonsillar fluid collection is seen on the right. There is no evidence of mass lesion. The vocal cords are symmetric. There is infiltration of the left parapharyngeal fat, with deep soft tissue infiltration seen extending into the left lower neck below the level of the hyoid. The right-sided parapharyngeal fat is maintained. The prevertebra l/retropharyngeal soft tissues are within normal limits. The epiglottis is normal. Lymphadenopathy: There are numerous enlarged bilateral cervical chain lymph nodes, left greater than right. A veterans service representative left cervical chain node on image #177 measures 2.1 x 1.6 cm. Thyroid: Normal in size and attenuation. Salivary glands: The parotid and submandibular glands are within normal limits. Brain parenchyma: The visualized brain parenchyma at the skull base is normal in appearance. Vascular structures: The carotid arteries and jugular veins are patent. Skeletal structures: Imaged portions of the calvarium at the skull base are within normal limits. The cervical spine appears intact. Sinuses and mastoids: The visualized paranasal sinuses are clear. The mastoid air cells are well pneumatized. Orbits: Bony orbits are intact. Orbital contents are normal as visualized. Lung apices: Visualized apical lung parenchyma is clear. IMPRESSION: 1. There is evidence of a pharyngitis/tonsillitis as above with a 1.9 cm developing left peritonsillar abscess. 2. This mildly effaces the left aspect of the airway at this level. 3. There is infiltration of the left-sided parapharyngeal fat with inflammatory change involving the deep soft tissues of the left neck as above. 4. Numerous mildly enlarged cervical lymph nodes are likely reactive. 5. Additional findings as above. ACT 112: Negative or not required by law. Electronically signed by: True Berman M.D. 11/23/2023 1:35 PM Hospital Course (1) Acute tonsillitis: (2) Peritonsillar abscess: (3) Sepsis: Joss Perkins is a 23y/o M with no significant PMHx who presented to the ED for evaluation of a worsening sore throat and was found to have a 1.9cm left peritonsillar abscess with associated tonsillitis on soft tissue neck CT. Acute Tonsillitis Left Peritonsillar Abscess Sepsis - resolved Met sepsis criteria on presentation 2/2 tachycardia, fever, WBC 16K. BP stable. RVP & monoscreen both negative. Soft tissue neck CT showed evidence of a pharyngitis/tonsillitis with a 1.9 cm developing left peritonsillar abscess. Neck CT also revealed infiltration of the left-sided parapharyngeal fat with inflammatory change involving the deep soft tissues of the left neck & numerous mildly enlarged cervical lymph nodes (likely reactive). Per ENT, Patient was started on IV Decadron 10 mg q6h and broad-spectrum antibiotics (received IV Rocephin in the ED, was transitioned to IV Zosyn and IV linezolid) Linezolid discontinued on 11/23 due to negative MRSA swab Zosyn continued until discharge Patient improved and was tolerating a regular diet by the day of discharge. Per ENT, he will be discharged on a course of clindamycin for 14 days and Medrol Dosepak. Follow-up with ENT. Attending Addendum: Case reviewed with the advanced practitioner. I have personally performed a history and physical examination on the patient. I have reviewed the advanced practitioner's documentation on the date of service referenced in note, and I agree with, and take responsibility for the plan of care. please refer to her notes for full details patient seen and examined, records reviewed by myself as well on exam, patient seen resting in bed, comfortable, in good spirits states he feels much better overall pain over the right mandibular area resolved no dysphagia, dyspnea feels better overall no other symptoms VS noted and reviewed oriented x 3, not in distress, speaks in sentences with no effort nor accessory muscle use no facial edema, tenderness mild erythema left tonsillar area normal rate, regular rhythm, no murmurs clear breath sounds bilaterally non distended, soft, nontender no bipedal edema, erythema, warmth no neuro deficits all labs, imaging noted and reviewed ASSESSMENT AND PLAN> L Tonsillar Abscess d/c on Clindamycin x 2 weeks and Steroid course close ff up with ENT other diagnoses and plan of care as per advanced practitioner's notes Kamron Marrero MD Total Time Total Time Spent Total Time Spent (In Minutes): 40 Discharge Plan Discharge Items Patient Disposition: Home - Self-Care Reason For Visit: Sore Throat Discharge Diagnosis: Left peritonsillar abscess Activity: Resume your previous activity Non-emergency contact: Primary Care Provider and Specialist Call non-emergency contact if: you have any medication questions, your symptoms worsen, your pain is not controlled and your pain is concerning for you Follow-up/Referrals: Fiorella Hogue MD [Surgeon] - (The ENT office will contact you for a follow up appointment.) Nehemiah Francois MD [Outside Practitioners] - (Date & Time 11/30/2023 2:00 PM Provider Nehemiah Francois MD Department [facility] ) Diet: Regular Addtl Attending Provider Instructions: You presented to the hospital for evaluation of a sore throat. You were found to have a left peritonsillar abscess (fluid collection and infection of the left tonsil). You were treated with IV antibiotics and IV steroids. You will be discharged on both oral antibiotic (Clindamycin 300 mg every 6 hours for 14 days) and oral steroid (Medrol Dosepak - take per package instructions). You will need to follow up with ENT - the office will call you with an appointment. It was a pleasure taking care of you. If you need to reach a member of the [facility] Hospitalist team at [facility], please call [phone]. NABIL Lewis Pending Studies at Discharge: No Stand-Alone Forms: My [facility] Health, Smoking Cessation Medications and DC Order Prescriptions: New clindamycin HCl 300 mg capsule 300 mg PO Q6H 14 Days Qty: 56 0RF methylprednisolone 4 mg Tablet 4 mg PO UD Qty: 21 0RF Rx Instructions: Day-1 8mg(BREAK), 4mg(SEEMA), 4mg(SUP), 8mg(HS) Day-2 4mg(BREAK), 4mg(SEEMA), 4mg(SUP), 8mg(HS) Day-3 4mg(BREAK), 4mg(SEEMA), 4mg(SUP), 4mg(HS) Day-4 4mg(BREAK), 4mg(SEEMA), 4mg(HS) Day-5 4mg(BREAK), 4mg(HS) Day-6 4mg(BREAK) No Action No Known Home Medications Discharge Orders: Discharge Order (Routine); Ordered 11/25/23 Ordered By: Siobhan Staton/Other Patient Handouts: Peritonsillar Abscess Admission Data Admit Date/Time: 11/23/23 14:24 Attending Provider: Kamron Marrero Admit Provider: Leonor Russell Primary Care Provider: Clinton Fay Other Providers: Fiorella Hogue; Leonor Russell Other Interventions: Discharge Summary Assessment (RN) Last Done: 11/25/23 12:07
[2023-11-25] MEDS ORDERED: methylPREDNISolone 4 MG TAB PO SCH (15:00)
[2023-11-26] MEDS ORDERED: methylPREDNISolone 4 MG TAB PO SCH ×2 (07:00→21:00)
[2023-11-26] MEDS ORDERED: methylPREDNISolone 4 MG TAB, 6 DAY TAPER PO SCH (09:00)
[2023-11-27] MEDS ORDERED: methylPREDNISolone 4 MG TAB PO SCH (07:00)
[2023-11-28] MEDS ORDERED: methylPREDNISolone 4 MG TAB PO SCH (07:00)
[2023-11-29] MEDS ORDERED: methylPREDNISolone 4 MG TAB PO SCH (07:00)
[2023-11-30] MEDS ORDERED: methylPREDNISolone 4 MG TAB PO SCH (07:00)
== END 2023-11-25 15:15 | disposition home or self-care (01) | DRG 872 ==
LOC: ED 11:12 → SUATTDRO 14:24 → 2W 14:24